=== PATIENT | male | born 1965 | race Caucasian/White ===

== ENCOUNTER → 2016-05-12 | Day surgery (SDC) | payer BC ==
[2016-05-03 15:28] VITALS: BMI 25.0
[~2016-05-12] VITALS: Ht 172.7 cm; Wt 75.0 kg
[~2016-05-12] MED LIST: ADVIN25050 INH; ALBUAER2 INH; ALLDSR/24 PO; FLNIN NAE; LIDOCAINE HCL 2% 2 ML VIAL (20MG/ML) ONE; MIDAZOLAM HCL 1 MG/ML 2ML VIAL ONE; MULTTAB58 PO; PROPOFOL IV EMULSION 10 MG/ML 20 ML VIAL IV ONE
[2016-05-12 14:22] VITALS: Ht 172.7 cm; Wt 75.0 kg
--- NOTE | 2016-05-12 14:37 | Endo History and Physical ---
History & Physical Date of Service: May 12, 2016. Chief Complaint: screening times 9 y/s Referring Physician: Dr. Avina History of Present Illness 50 yo CM who presents for screening colonoscopy. Past Surgical History Hx Cardiac Surgery: No Hx Internal Defibrillator: No Hx Pacemaker: No Hx Abdominal Surgery: Yes (APPY) Hx of Implantable Prosthesis: No Hx Post-Op Nausea and Vomiting: No Hx Cancer Surgery: No Hx Thoracic Surgery: No Hx Orthopedic: No Hx Urinary Tract Surgery: No Family History None Social History Smoking Status: Never Smoker Hx Substance Use: No Hx Alcohol Use: Yes (OCCASSIONALLY) Allergies Coded Allergies: Amoxicillin (Verified Allergy, Unknown, HIVES, 05/12/16) Aspirin (Verified Allergy, Unknown, HIVES, 05/12/16) Fish Allergy (Verified Allergy, Unknown, HIVES, 05/12/16) Current Medications Reported Home Medications Medications Dose Route/Sig Max Daily Dose Days Date Category Multivitamin (Multiple Vitamin) 1 Tab Tab 1 Tab PO QAM 12/04/11 Reported Ventolin (Albuterol) Inh 2 Puffs INH Q4H PRN 5 01/28/10 Reported Priya-D 24HR 180/240MG * (Fexofenadine HCl/Pseudoephedrine) Tabcr 1 Tab PO QAM 01/28/10 Reported Flonase Nasal [place] * (Fluticasone Propionate) Inha 1 [place] JAMILAH BID PRN 01/28/10 Reported Advair Diskus 250/50 Mcg * (Salmeterol Xinafoate/Fluticasone) Aerp 1 Puff INH BID 01/28/10 Reported Vital Signs Weight (Kilograms): 75.00 Height (Feet): 5 Height (Inches): 8 Date Time Temp Pulse Resp B/P Pulse Ox O2 Delivery O2 Flow Rate FiO2 05/12/16 14:19 36.4 73 20 163/94 97 Room Air Physical Exam General Appearance: WD/WN, no apparent distress Respiratory/Chest: Auscultation: breath sounds normal Cardiovascular: Heart Auscultation: RRR Abdomen: Bowel Sounds: normal Inspection & Palpation: soft, non-distended, no tenderness, guarding & rebound Assessment and Plan Assessment: 50 yo CM who presents for screening colonoscopy. Plan: Proceed with colonoscopy.
--- NOTE | 2016-05-12 15:53 | Discharge Instructions ---
Endoscopy Patient Instructions Date / Procedure(s) Performed May 12, 2016. Colonoscopy Allergy Information Coded Allergies: Amoxicillin (Verified Allergy, Unknown, HIVES, 05/12/16) Aspirin (Verified Allergy, Unknown, HIVES, 05/12/16) Fish Allergy (Verified Allergy, Unknown, HIVES, 05/12/16) Discharge Date / Findings May 12, 2016. Colon polyp Internal hemorrhoids Medication Instructions OK to resume all medications today as prescribed. Reported Home Medications Medications Dose Route/Sig Max Daily Dose Days Date Category Multivitamin (Multiple Vitamin) 1 Tab Tab 1 Tab PO QAM 12/04/11 Reported Ventolin (Albuterol) Inh 2 Puffs INH Q4H PRN 5 01/28/10 Reported Priya-D 24HR 180/240MG * (Fexofenadine HCl/Pseudoephedrine) Tabcr 1 Tab PO QAM 01/28/10 Reported Flonase Nasal [place] * (Fluticasone Propionate) Inha 1 [place] JAMILAH BID PRN 01/28/10 Reported Advair Diskus 250/50 Mcg * (Salmeterol Xinafoate/Fluticasone) Aerp 1 Puff INH BID 01/28/10 Reported Provider Instructions Activity Restrictions - No exercising or heavy lifting for 24 hours. - Do not drink alcohol the day of the procedure. - Do not drive a car or operate machinery until the day after the procedure. - Do not make any important decisions or sign important papers in 24 hours after the procedure. Following Day: - Return to full activity which may include returning to work/school. Diet Start your diet with liquids and light foods (jello, soup, juice, toast). Then eat your usual diet if not nauseated. Treatment For Common After Affects For mild abdominal pain, bloating, or excessive gas: - Rest - Eat lightly - Lie on right side Follow-Up Information Follow-up with Dr. Avina as scheduled Anesthesia Information What You Should Know You have had a procedure that required some medicine to reduce anxiety and discomfort. This treatment is called moderate sedation. After receiving the treatment, you may be sleepy, but you will be able to breathe on your own. The effects of the treatment may last for several hours. Follow these instructions along with Activity/Diet recommendations noted above: * Do NOT do anything where dizziness or clumsiness would be dangerous. * Rest quietly at home today, then you can be up and about tomorrow. * Have a responsible person stay with you the rest of today. * You may have had an I.V. today. If so, you may take the dressing off later today. Recommendations Call your doctor if: * Trouble breathing * Continuous vomiting for more than 24 hours * Temperature above 101 degrees * Severe abdominal pain or bloating * Pain not relieved by pain medicine ordered * There is increased drainage or redness from any incision * A large amount of rectal bleeding greater than 2-3 tablespoons. (If you had a polyp/s removed or have hemorrhoids, a small amount of blood - from the rectum is to be expected.) * You have any unanswered questions or concerns. IN THE EVENT OF A SERIOUS EMERGENCY, GO TO THE NEAREST EMERGENCY ROOM Your discharge instructions were prepared by provider Jani Stein. Patient Instructions Signature Page Polo Lopez Patient (or Guardian) Signature/Date: I have read and understand the instructions given to me by my caregivers. Caregiver/RN/Doctor Signature/Date: The above-named patient and/or guardian has received patient instructions on this date. + Original Patient Signature Page (only) stays with chart. Please make copy for patient.
--- NOTE | 2016-05-12 15:57 | GI REPORT ---
Procedure Date: 05/12/2016 3:20 PM Procedure: Colonoscopy Indications: Screening for colorectal malignant neoplasm Medicines: Monitored Anesthesia Care Complications: No immediate complications. Estimated Blood Loss: Estimated blood loss: none. Procedure: Pre-Anesthesia Assessment: - Prior to the procedure, a History and Physical was performed, and patient medications and allergies were reviewed. The patient's tolerance of previous anesthesia was also reviewed. The risks and benefits of the procedure and the sedation options and risks were discussed with the patient. All questions were answered, and informed consent was obtained. Prior Anticoagulants: The patient has taken no previous anticoagulant or antiplatelet agents. ASA Grade Assessment: II - A patient with mild systemic disease. After reviewing the risks and benefits, the patient was deemed in satisfactory condition to undergo the procedure. After I obtained informed consent, the scope was passed under direct vision. Throughout the procedure, the patient's blood pressure, pulse, and oxygen saturations were monitored continuously. The Scope was introduced through the anus and advanced to the terminal ileum. The colonoscopy was performed without difficulty. The patient tolerated the procedure well. The quality of the bowel preparation was good. The terminal ileum, ileocecal valve, appendiceal orifice, and rectum were photographed. Findings: A 4 mm polyp was found in the ascending colon. The polyp was sessile. The polyp was removed with a cold snare. Resection and retrieval were complete. Non-bleeding internal hemorrhoids were found during retroflexion. The hemorrhoids were small. Impression: - One 4 mm polyp in the ascending colon, removed with a cold snare. Resected and retrieved. - Non-bleeding internal hemorrhoids. Recommendation: - Resume previous diet. - Continue present medications. - Repeat colonoscopy for surveillance based on pathology results. - Return to primary care physician as previously scheduled. Jani Stein DO 05/12/2016 3:56:24 PM This report has been signed electronically. Note Initiated On: 05/12/2016 3:20 PM
[2016-05-12 16:22] VITALS: BP 119/84; PULSE 71; O2SAT 100
--- NOTE | 2016-05-12 16:35 | Anesthesiology Progress Note ---
Anesthesia Post Op Note Date & Time May 12, 2016 at 16:35 Vital Signs Pain Intensity: 0 Vital Signs Past 12 Hours Date Time Temp Pulse Resp B/P Pulse Ox O2 Delivery O2 Flow Rate FiO2 05/12/16 16:22 71 20 119/84 100 Room Air 05/12/16 16:07 73 20 113/56 97 Room Air 05/12/16 15:52 83 24 114/64 99 Room Air 05/12/16 14:19 36.4 73 20 163/94 97 Room Air Notes Mental Status: alert / awake / arousable, participated in evaluation Pt Amnestic to Procedure: Yes Nausea / Vomiting: adequately controlled Pain: adequately controlled Airway Patency, RR, SpO2: stable & adequate BP & HR: stable & adequate Hydration State: stable & adequate Anesthetic Complications: no major complications apparent
== END | disposition home or self-care (01) ==
LOC: C.GI 14:04
PROVIDERS: ATTEND Internal Medicine
DX: Z12.11 Encounter for screening for malignant neoplasm of colon (principal); K63.5 Polyp of colon; K64.8 Other hemorrhoids

== ENCOUNTER → 2016-07-09 | Outpatient (CLI) | payer BC ==
[~2016-07-09] MED LIST changes: -LIDOCAINE HCL 2% 2 ML VIAL (20MG/ML) ONE; -MIDAZOLAM HCL 1 MG/ML 2ML VIAL ONE; -PROPOFOL IV EMULSION 10 MG/ML 20 ML VIAL IV ONE
[2016-07-09 09:38] LABS: BASO % 0.9 %; BASO ABS # 0.05 K/uL (0-0.2); COMPLETE YES; EOS % 4.5 %; HEMATOCRIT 44.3 % (42-52); LYMPH % 30.3 %; LYMPH ABS # 1.61 K/uL (1.2-3.4); MEAN CELL VOLUME 88.6 fL (80-100); MEAN CORPUSCULAR HEMOGLOBIN 31.4 pg (25-34); MEAN CORPUSCULAR HGB CONC 35.4 g/dl (32-36); MEAN PLATELET VOLUME 10.6 fL (7.4-10.4); MONO % 12.4 %; NEUT % 51.9 %; PLATELET COUNT 230 K/uL (130-400); WHITE BLOOD COUNT 5.31 K/uL (4.8-10.8)
[2016-07-09 10:00] LABS: ALT/SGPT 42 U/L (12-78); AST/SGOT 26 U/L (15-37); BLOOD UREA NITROGEN 20 mg/dl (7-18); BUN/CREATININE RATIO 18.1 (10-20); CALCIUM 8.9 mg/dl (8.5-10.1); CARBON DIOXIDE 27 mmol/L (21-32); CHLORIDE 106 mmol/L (98-107); GLUCOSE 85 mg/dl (70-99); POTASSIUM 3.6 mmol/L (3.5-5.1); SODIUM 142 mmol/L (136-145)
[2016-07-09 10:10] LABS: ALB/GLOB RATIO 1.3 (0.9-2); ALKALINE PHOSPHATASE 78 U/L (45-117); CHOLESTEROL 160 mg/dl (0-200); CHOLESTEROL/HDL RATIO 3.1; HDL CHOLESTEROL 51 mg/dl; LDL CHOLESTEROL CALCULATED 99 mg/dl; TRIGLYCERIDES 51 mg/dl (0-150); VERY LOW DENSITY LIPOPROT CALC 10 mg/dl
== END | disposition home or self-care (01) ==
LOC: C.LAB1850 06:47
PROVIDERS: ATTEND Nurse Practitioner
DX: J45.909 Unspecified asthma, uncomplicated (principal); K63.5 Polyp of colon; K64.8 Other hemorrhoids

== ENCOUNTER → 2017-07-02 | Outpatient (CLI) | payer OTHER ==
[2017-07-02 11:06] LABS: BASO % 1.2 %; BASO ABS # 0.06 K/uL (0-0.2); EOS % 3.3 %; EOS ABS # 0.17 K/uL (0-0.5); HEMATOCRIT 44.8 % (42-52); HEMOGLOBIN 15.9 g/dL (14.0-18.0); IG# 0.01 K/uL (0.00-0.02); LYMPH ABS # 1.45 K/uL (1.2-3.4); MEAN CELL VOLUME 90.3 fL (80-100); MEAN CORPUSCULAR HEMOGLOBIN 32.1 pg (25-34); MEAN CORPUSCULAR HGB CONC 35.5 g/dl (32-36); MEAN PLATELET VOLUME 10.6 fL (7.4-10.4); MONO % 11.8 %; MONO ABS # 0.61 K/uL (0.11-0.59); NEUT % 55.5 %; NEUT ABS # 2.88 K/uL (1.4-6.5); PLATELET COUNT 232 K/uL (130-400); RED CELL DISTRIBUTION WIDTH CV 12.6 % (11.5-14.5); RED CELL DISTRIBUTION WIDTH SD 41.4 fL (36.4-46.3); WHITE BLOOD COUNT 5.18 K/uL (4.8-10.8)
[2017-07-02 11:35] LABS: ALBUMIN 3.7 gm/dl (3.4-5.0); ALT/SGPT 38 U/L (12-78); BLOOD UREA NITROGEN 21 mg/dl (7-18); CALCIUM 8.8 mg/dl (8.5-10.1); CARBON DIOXIDE 26 mmol/L (21-32); CHOLESTEROL 181 mg/dl (0-200); CREATININE 1.13 mg/dl (0.60-1.40); GLUCOSE 87 mg/dl (70-99); POTASSIUM 3.5 mmol/L (3.5-5.1); SODIUM 141 mmol/L (136-145)
[2017-07-02 11:45] LABS: ALKALINE PHOSPHATASE 82 U/L (45-117); AST/SGOT 20 U/L (15-37); LDL CHOLESTEROL CALCULATED 123 mg/dl
== END | disposition home or self-care (01) ==
LOC: C.LAB1850 07:49
PROVIDERS: ATTEND Physician Assistant Medical
DX: Z00.00 Encounter for general adult medical examination without abnormal findings (principal); J45.909 Unspecified asthma, uncomplicated

== ENCOUNTER → 2017-08-08 | Outpatient (CLI) | payer OTHER ==
--- NOTE | 2017-08-08 10:26 | DIAGNOSTIC IMAGING REPORT ---
RIGHT FOOT 3 VIEWS CLINICAL HISTORY: Right foot pain. FINDINGS: 3 views of the right foot are compared to study dated 11/08/2011. The skeletal structures are well mineralized. No fracture is identified. The joint spaces of the foot are maintained. There is a tiny plantar calcaneal enthesophyte. Degenerative spurring is seen along the dorsal aspect of the tarsal bones. Dorsal soft tissue edema is noted. IMPRESSION: Dorsal soft tissue swelling with no radiographic evidence of right foot fracture. Electronically signed by: Carmelo Platt M.D. 08/08/2017 10:24 AM Dictated Date/Time: 08/08/2017 10:22 AM
== END | disposition home or self-care (01) ==
LOC: C.RDSM 18:01
PROVIDERS: ATTEND Internal Medicine
DX: M79.671 Pain in right foot (principal)

== ENCOUNTER 2020-08-01 00:53 | Inpatient (IN) ==
[2020-08-01] MEDS ORDERED: MoRPHine SULFATE 4 MG/ML 1 ML CARP\\VIAL IV STA (01:20)
[2020-08-01] MEDS ORDERED: ONDANSETRON INJ 2 MG/ML 2 ML VIAL IV STA ×2 (01:20→03:29)
[2020-08-01] MEDS ORDERED: SODIUM CHLORIDE 0.9% 1000ML 1,000 ML IV ONE ×2 (01:20→03:16)
[2020-08-01] MEDS ORDERED: ACETAMINOPHEN 1,000 MG/100 ML VIAL IV STA (01:20)
--- NOTE | 2020-08-01 01:29 | Emergency Department Note ---
History of Present Illness General Chief complaint: Flank Pain Stated complaint: flank pain Time Seen by Provider: 08/01/20 01:05 Source: patient Mode of arrival: ambulatory Limitations: no limitations History of Present Illness Provider complaint: Right flank pain Onset (ago): hour(s) 1 Location: back Radiation: non-radiation Severity: severe Pain Consistency: + constant Maximum Pain Intensity: 9 Current Pain Intensity: 9 Relieved By: + none Exacerbated By: + none Associated symptoms: + nausea/vomiting Treatments prior to arrival: none This is a 54-year male presents the emergency department with abrupt onset of right flank pain. Patient states pain woke him up from sleep at exactly 12:02 AM. Patient denies any prior similar episodes. States pain is nonradiating, he has felt nauseated but has not vomited. No recent fevers or chills. Patient states he was slightly cold and felt diaphoretic with the pain. He states there is some waxing and waning quality to the pain. No recent change in bowel or bladder function. No recent change in diet or activity. No trauma. No prior history of kidney stones or other kidney problems. No known family history of renal issues. Pt seen during a time of high acuity and national emergency pandemic while wearing PPE. Home Medications Medication Instructions Recorded Confirmed Type fluticasone propionate 50 1 spray INTRANASAL DAILY gm 11/22/18 08/01/20 History mcg/actuation nasal spray,suspension multivitamin 1 tab PO DAILY 11/22/18 08/01/20 History fexofenadine-pseudoephedrine ER 1 tab PO QAM #90 tab 08/27/19 08/01/20 Rx 180 mg-240 mg tablet,ext.release 24 hr albuterol sulfate 90 mcg/actuation 2 puffs INHALATION Q4H PRN #3 09/18/19 08/01/20 Rx aerosol inhaler inhaler fluticasone 250 mcg-salmeterol 50 1 inh INHALATION BID #3 ea 07/02/20 08/01/20 Rx mcg/dose blistr powdr for inhalation Allergies Allergy/AdvReac Type Severity Reaction Status Date / Time amoxicillin Allergy Intermediate HIVES Verified 08/01/20 01:24 aspirin Allergy Intermediate HIVES Verified 08/01/20 01:24 Fish Containing Products Allergy Intermediate HIVES Verified 08/01/20 01:24 fish derived Allergy Verified 08/02/20 16:52 fish oil Allergy Verified 08/02/20 16:52 POLLEN Allergy Intermediate ITCHY Uncoded 08/01/20 01:26 EYES, SNEEZING, CONGESTION, HX ASTHMA Past Med/Surg History Medical History H/O epistaxis Surgical History History of appendectomy History of cataract surgery History of colonoscopy Family History Unknown Allergic rhinitis Diabetes Father Cardiac disorder Hypercholesterolemia Mother Hypertension Hypercholesterolemia Social History Smoking Status: Never smoker Hx Alcohol Use: Yes Hx Substance Use: No Preferred Language: Mongolian Communication Ability: Effective Statistician Applied Required: No Beliefs That Will Affect Care: None marital status: Current Living Situation: Spouse current occupational status: employed Feels Safe at Home: Yes Safety Concerns: Feels Safe At This Time Assistive Devices: Glasses Review of Systems See HPI for pertinent positives & negatives. and A total of 10 systems reviewed and were otherwise negative Physical Exam Vital Signs Vital Signs - 24 hr 08/01/20 01:00 08/01/20 01:05 08/01/20 01:14 Temperature 35.9 C L Temperature Source Temporal Artery Scan Pulse Rate 86 61 Pulse Rate from SpO2 Sensor 60 Respiratory Rate 22 20 17 Respiratory Effort / Characteristics Non-Labored Spontaneous Respiratory Depth Normal Normal Respiratory Pattern Regular Blood Pressure 135/84 156/92 H Blood Pressure Mean 101 113 Pulse Oximetry 100 100 Oxygen Delivery Method Room Air Room Air Sepsis Recent Fever Within 48 Hours No Sepsis New/Unexplained Change in Mental Status N/A Sepsis Action Taken by Nursing No Action Required 08/01/20 01:37 08/01/20 02:00 08/01/20 02:30 Temperature Temperature Source Pulse Rate 61 72 63 Pulse Rate from SpO2 Sensor 61 67 61 Respiratory Rate 12 20 17 Respiratory Effort / Characteristics Respiratory Depth Respiratory Pattern Blood Pressure 144/103 H 141/78 H Blood Pressure Mean 116 99 Pulse Oximetry 100 100 99 Oxygen Delivery Method Room Air Room Air Sepsis Recent Fever Within 48 Hours Sepsis New/Unexplained Change in Mental Status Sepsis Action Taken by Nursing 08/01/20 02:31 08/01/20 03:06 08/01/20 03:12 Temperature Temperature Source Pulse Rate 63 68 72 Pulse Rate from SpO2 Sensor 63 71 Respiratory Rate 12 17 19 Respiratory Effort / Characteristics Respiratory Depth Respiratory Pattern Blood Pressure 137/79 162/87 H Blood Pressure Mean 98 112 Pulse Oximetry 99 98 Oxygen Delivery Method Sepsis Recent Fever Within 48 Hours Sepsis New/Unexplained Change in Mental Status Sepsis Action Taken by Nursing GENERAL: alert, uncomfortable appearing, well nourished, mild distress, non- toxic EYE EXAM: normal conjunctiva, PERRL and EOM's grossly intact OROPHARYNX: no exudate, no erythema, lips, buccal mucosa, and tongue normal and mucous membranes are moist NECK: supple, no nuchal rigidity, no adenopathy, non-tender LUNGS: Clear to auscultation. Normal chest wall mechanics, no w/r/r HEART: no murmurs, S1 normal and S2 normal ABDOMEN: abdomen soft, non-tender, normo-active bowel sounds, no masses, no rebound or guarding. BACK: Back is symmetrical on inspection and there is no deformity, no midline tenderness, no CVA tenderness. SKIN: no rashes and no bruising UPPER EXTREMITIES: upper extremities are grossly normal. FROM, nml pulses b/l. LOWER EXTREMITIES: No pitting edema. FROM, nml pulses b/l. NEURO EXAM: Normal sensorium, cranial nerves II-XII grossly intact, normal speech, no gross weakness of arms, no gross weakness of legs. Gross sensation intact. Course Course 0245: Patient has been persistently nauseated although pain has improved additional medications. Patient was very diaphoretic. Patient states with any movement the nausea seems to worsen. Patient's had several doses of pain and nausea medication at this time. Discussed trial of going to CT to obtain imaging as ordered. 0325: Patient still nauseated and diaphoretic, was able to complete CT scan. Patient still has not been able to produce a urine specimen. Patient with second liter of IV fluids and has had multiple medications for pain and nausea at this time and still feels nauseated. He says pain is improved down to a 2 or 3 out of 10 although is still present and is not radiating. Discussed with patient given difficulty with pain and persistent nausea/vomiting, he may benefit from additional inpatient monitoring and treatment until such time as his symptoms can be better controlled. 0345: Discussed with hospitalist for inpt mgmt. UA still pending as pt hasn't p roduced urine specimen yet. Administered Medications Acetaminophen (Acetaminophen 325 Mg Tab) 650 mg PO Q4H PRN PRN Reason: pain/fever Stop: 08/31/20 05:40 Last Admin: 08/02/20 09:40 Dose: 650 mg Documented by: [id number] Admin: 08/01/20 23:13 Dose: 650 mg Documented by: [id number] Admin: 08/01/20 19:24 Dose: 650 mg Documented by: [id number] Admin: 08/01/20 12:57 Dose: 650 mg Documented by: [id number] Fluticasone Propionate (Fluticasone Propionate Na Spr 16 Gm Btl) 1 sprays NA DAILY [facility] Stop: 08/31/20 08:59 Last Admin: 08/02/20 09:38 Dose: 1 sprays Documented by: [id number] Admin: 08/01/20 07:50 Dose: 1 sprays Documented by: [id number] Fluticasone/Vilanterol (Fluticasone/Vilanterol 100/25mcg 14 Puffs/Inhaler) 1 puffs INH DAILY [facility] Stop: 08/31/20 08:59 Last Admin: 08/02/20 09:37 Dose: 1 puffs Documented by: [id number] Admin: 08/01/20 07:51 Dose: 1 puffs Documented by: [id number] Hydromorphone HCl (Hydromorphone Inj 0.5 Mg/0.5 Ml Syr) 0.5 mg IV Q3H PRN PRN Reason: Pain (6,7,8,9,10) Stop: 08/15/20 05:40 Last Admin: 08/02/20 05:51 Dose: 0.5 mg Documented by: [id number] Admin: 08/01/20 23:14 Dose: 0.5 mg Documented by: [id number] Admin: 08/01/20 13:43 Dose: 0.5 mg Documented by: [id number] Admin: 08/01/20 07:50 Dose: 0.5 mg Documented by: [id number] Ceftriaxone Sodium 1,000 mg/ (Dextrose) 50 mls @ 100 mls/hr IV Q24H [facility]DAR; Protocol Stop: 08/11/20 05:59 Last Infusion: 08/02/20 06:29 Dose: 0 mls/hr Documented by: [id number] Admin: 08/02/20 05:47 Dose: 100 mls/hr Documented by: [id number] Infusion: 08/01/20 07:49 Dose: 0 mls/hr Documented by: [id number] Admin: 08/01/20 06:18 Dose: 100 mls/hr Documented by: [id number] Potassium Chloride/Dextrose/Sod Cl (D5w And 1/2nss + 20meq Kcl) 20 meq in 1,000 mls @ 175 mls/hr IV .Q5H43M [facility] Stop: 09/01/20 09:29 Last Admin: 08/02/20 23:27 Dose: 175 mls/hr Documented by: [id number] Infusion: 08/02/20 22:42 Dose: 175 mls/hr Documented by: [id number] Admin: 08/02/20 16:59 Dose: 175 mls/hr Documented by: [id number] Infusion: 08/02/20 15:19 Dose: 175 mls/hr Documented by: [id number] Admin: 08/02/20 09:36 Dose: 175 mls/hr Documented by: [id number] Oxybutynin Chloride (Oxybutynin Chloride 5 Mg Tab) 5 mg PO BID [facility] Stop: 09/01/20 13:59 Last Admin: 08/02/20 20:34 Dose: 5 mg Documented by: [id number] Admin: 08/02/20 14:55 Dose: 5 mg Documented by: [id number] Tamsulosin HCl (Tamsulosin Hcl 0.4 Mg Cap) 0.4 mg PO QAM [facility] Stop: 08/31/20 08:59 Last Admin: 08/02/20 09:37 Dose: 0.4 mg Documented by: [id number] Admin: 08/01/20 07:51 Dose: 0.4 mg Documented by: [id number] Discontinued Medications Hydromorphone HCl (Hydromorphone Inj 1 Mg/Ml Syringe) 1 mg IV NOW STA Stop: 08/01/20 02:00 Last Admin: 08/01/20 02:04 Dose: 1 mg Documented by: [id number] Acetaminophen (Ofirmev) 1,000 mg in 100 mls @ 400 mls/hr IV NOW STA Stop: 08/01/20 01:34 Last Infusion: 08/01/20 01:50 Dose: 0 mls/hr Documented by: [id number] Admin: 08/01/20 01:28 Dose: 400 mls/hr Documented by: [id number] Sodium Chloride (Nss 1000ml) 1,000 mls @ 999 mls/hr IV .Q1H1M ONE Stop: 08/01/20 02:20 Last Infusion: 08/01/20 03:11 Dose: 0 mls/hr Documented by: [id number] Admin: 08/01/20 01:28 Dose: 999 mls/hr Documented by: [id number] Prochlorperazine (Compazine) 1 mls @ 1 mls/min IV ONE ONE Stop: 08/01/20 02:21 Last Admin: 08/01/20 02:28 Dose: 1 mls/min Documented by: [id number] Sodium Chloride (Nss 1000ml) 1,000 mls @ 999 mls/hr IV .Q1H1M ONE Stop: 08/01/20 04:16 Last Infusion: 08/01/20 15:38 Dose: 0 mls/hr Documented by: [id number] Admin: 08/01/20 03:26 Dose: 999 mls/hr Documented by: [id number] Sodium Chloride (Nss 1000ml) 1,000 mls @ 125 mls/hr IV .Q8H [facility] Stop: 08/31/20 05:40 Last Infusion: 08/02/20 09:42 Dose: 0 mls/hr Documented by: [id number] Admin: 08/02/20 07:51 Dose: 125 mls/hr Documented by: [id number] Infusion: 08/02/20 07:19 Dose: 125 mls/hr Documented by: [id number] Admin: 08/01/20 23:19 Dose: 125 mls/hr Documented by: [id number] Infusion: 08/01/20 23:19 Dose: 125 mls/hr Documented by: [id number] Admin: 08/01/20 16:00 Dose: 125 mls/hr Documented by: [id number] Infusion: 08/01/20 15:22 Dose: 125 mls/hr Documented by: [id number] Infusion: 08/01/20 10:36 Dose: 125 mls/hr Documented by: [id number] Infusion: 08/01/20 09:31 Dose: 0 mls/hr Documented by: [id number] Admin: 08/01/20 06:17 Dose: 125 mls/hr Documented by: [id number] Ketorolac Tromethamine (Ketorolac Tromethamine 15 Mg/Ml Vial) 10 mg IV NOW ONE Stop: 08/01/20 02:21 Last Admin: 08/01/20 02:29 Dose: 10 mg Documented by: [id number] Morphine Sulfate (Morphine Sulfate 4 Mg/Ml 1 Ml Carp\Vial) 4 mg IV NOW STA Stop: 08/01/20 01:21 Last Admin: 08/01/20 01:28 Dose: 4 mg Documented by: [id number] Ondansetron HCl (Ondansetron Inj 2 Mg/Ml 2 Ml Vial) 4 mg IV NOW STA Stop: 08/01/20 01:21 Last Admin: 08/01/20 01:28 Dose: 4 mg Documented by: [id number] Ondansetron HCl (Ondansetron Inj 2 Mg/Ml 2 Ml Vial) 4 mg IV NOW STA Stop: 08/01/20 03:30 Last Admin: 08/01/20 03:42 Dose: 4 mg Documented by: [id number] Tamsulosin HCl (Tamsulosin Hcl 0.4 Mg Cap) 0.4 mg PO NOW ONE Stop: 08/01/20 03:20 Last Admin: 08/01/20 03:42 Dose: 0.4 mg Documented by: [id number] Medical Decision Making Differential Diagnosis Differential diagnosis: Etiologies such as shingles, pyelonephritis/UTI, renal colic, appendicitis, diverticulitis, mesenteric ischemia, torsion, aortic pathology, infections, inflammatory bowel disease, bowel obstruction, PUD, biliary pathology, as well a s others were entertained. Medical Records Attestation: I reviewed the patient's medical records. Home Medications Current Medication List: was personally reviewed by me Laboratory Data Attestation: I reviewed the patient's lab results. Result diagrams: 08/02/20 06:16 08/02/20 06:16 Lab Results 08/01/20 08/01/20 08/01/20 Range/Units 01:15 01:15 03:41 WBC 7.20 (4.8-10.8) K/uL RBC 4.86 (4.7-6.1) M/uL Hgb 15.6 (14.0-18.0) g/dL Hct 44.3 (42-52) % MCV 91.2 (80-100) fL MCH 32.1 (25-34) pg MCHC 35.2 (32-36) g/dL RDW Std Deviation 42.1 (36.4-46.3) fL RDW Coeff of Sean 12.7 (11.5-14.5) % Plt Count 286 (130-400) K/uL MPV 10.1 (7.4-10.4) fL Immature Gran % (Auto) 0.1 % Neut % (Auto) 50.1 % Lymph % (Auto) 36.3 % Dewitt % (Auto) 10.1 % Eos % (Auto) 2.4 % Baso % (Auto) 1.0 % Neut # (Auto) 3.61 (1.4-6.5) K/uL Lymph # (Auto) 2.61 (1.2-3.4) K/uL Dewitt # (Auto) 0.73 H (0.11-0.59) K/uL Eos # (Auto) 0.17 (0-0.5) K/uL Baso # (Auto) 0.07 (0-0.2) K/uL Immature Gran # (Auto) 0.01 (0.00-0.02) K/uL Sodium 139 (136-145) mmol/L Potassium 3.7 (3.5-5.1) mmol/L Chloride 106 (98-107) mmol/L Carbon Dioxide 26 (21-32) mmol/L Anion Gap 8.0 (3-11) BUN 23 H (7-18) mg/dl Creatinine 1.31 (0.6-1.4) mg/dl Est Cr Clr Drug Dosing 61.6 ml/min Est GFR ( Amer) 70.5 Est GFR (Non-Af Amer) 60.9 BUN/Creatinine Ratio 17.4 (10-20) Glucose 119 H (70-99) mg/dl Calcium 9.4 (8.5-10.1) mg/dl Total Bilirubin 0.5 (0.2-1) mg/dl AST 22 (15-37) U/L ALT 39 (12-78) U/L Alkaline Phosphatase 98 (45-117) U/L Total Protein 7.4 (6.4-8.2) gm/dl Albumin 3.9 (3.4-5.0) gm/dl Globulin 3.5 (2.5-4.0) gm/dl Albumin/Globulin Ratio 1.1 (0.9-2) COVID-19 Eval Order CovFluRsv at [facility] SARS-CoV-2 (PCR) (Negative) Influenza Type A (PCR) (Neg) Influenza Type B (PCR) (Neg) RSV (RT-PCR) (Neg) 08/01/20 Range/Units 03:41 WBC (4.8-10.8) K/uL RBC (4.7-6.1) M/uL Hgb (14.0-18.0) g/dL Hct (42-52) % MCV (80-100) fL MCH (25-34) pg MCHC (32-36) g/dL RDW Std Deviation (36.4-46.3) fL RDW Coeff of Sean (11.5-14.5) % Plt Count (130-400) K/uL MPV (7.4-10.4) fL Immature Gran % (Auto) % Neut % (Auto) % Lymph % (Auto) % Dewitt % (Auto) % Eos % (Auto) % Baso % (Auto) % Neut # (Auto) (1.4-6.5) K/uL Lymph # (Auto) (1.2-3.4) K/uL Dewitt # (Auto) (0.11-0.59) K/uL Eos # (Auto) (0-0.5) K/uL Baso # (Auto) (0-0.2) K/uL Immature Gran # (Auto) (0.00-0.02) K/uL Sodium (136-145) mmol/L Potassium (3.5-5.1) mmol/L Chloride (98-107) mmol/L Carbon Dioxide (21-32) mmol/L Anion Gap (3-11) BUN (7-18) mg/dl Creatinine (0.6-1.4) mg/dl Est Cr Clr Drug Dosing ml/min Est GFR ( Amer) Est GFR (Non-Af Amer) BUN/Creatinine Ratio (10-20) Glucose (70-99) mg/dl Calcium (8.5-10.1) mg/dl Total Bilirubin (0.2-1) mg/dl AST (15-37) U/L ALT (12-78) U/L Alkaline Phosphatase (45-117) U/L Total Protein (6.4-8.2) gm/dl Albumin (3.4-5.0) gm/dl Globulin (2.5-4.0) gm/dl Albumin/Globulin Ratio (0.9-2) COVID-19 Eval Order SARS-CoV-2 (PCR) NEGATIVE (Negative) Influenza Type A (PCR) Negative (Neg) Influenza Type B (PCR) Negative (Neg) RSV (RT-PCR) Negative (Neg) Imaging Data Radiologist's Impression: CT abdomen and pelvis without contrast: Mild/moderate hiatal hernia with fluid in esophagus and stomach. 3.5 mm mid ureteral stone with upstream mild hydroureter and hydronephrosis. Multiple additional nonobstructive 1 to 2 mm stones seen in the right kidney upper mid and lower pole as well as in the left kidney mid to upper pole. Small periumbilical fat-containing hernia. Mild convex left curvature of the mid lumbar spine at L2. Straightening of the normal lumbar lordosis. L5-S1 loss of disc height. Radiologist: Mary Coy MD MDM Narrative This is a 54 yo male who presents with sudden onset right flank pain and nausea. No prior similar episodes, no other significant medical hx or recent illness. No trauma. Symptoms most suggestive of renal colic. IV started in order to provide meds for pain and nausea. IVF started, labs sent and CT ordered. It took several doses of pain and nausea meds to calm the patient's symptoms enough to go to CT. Pt was diaphoretic and holding an emesis bag thru most of this. CT was eventually obtained and confirmed suspected renal colic. No other acute pathology noted. Pt given additional meds and IVF and still had significant nausea, although pain was improved. Given extent of symptoms, ill appearance despite meds, discussed with him additional inpatient mgmt. Pt and verbalized understanding and were in agreement. An order was placed for continuous cardiac monitoring. The monitor shows a rate of 80_ with _normal sinus_ rhythm. Impression & Plan Ureterolithiasis, Acute flank pain, Nausea & vomiting Discharge Plan Visit Data Chief Complaint: Flank Pain Stated Complaint: flank pain ED Provider: Montserrat Garcia Discharge Problem: Ureterolithiasis, Acute flank pain, Nausea & vomiting Patient Disposition: Admitted As Inpatient Discharge Instructions Interventions: ED Discharge Assessment Last Done: 08/01/20 05:32 Discharge Problem: Nausea & vomiting Qualifiers: Vomiting type: unspecified Vomiting Intractability: intractable Qualified Code(s): R11.2 - Nausea with vomiting, unspecified
[2020-08-01 01:46] LABS: Basophils # (auto) 0.07 K/uL (0-0.2); Eosinophils # (auto) 0.17 K/uL (0-0.5); Eosinophils % (auto) 2.4 %; Hematocrit (blood only) 44.3 % (42-52); Hemoglobin 15.6 g/dL (14.0-18.0); Immature Granulocytes # (auto) 0.01 K/uL (0.00-0.02); Immature Granulocytes % (auto) 0.1 %; Lymphocytes # (auto) 2.61 K/uL (1.2-3.4); Lymphocytes % (auto) 36.3 %; Mean Corpuscular Hemoglobin 32.1 pg (25-34); Mean Corpuscular Hgb Conc 35.2 g/dL (32-36); Mean Corpuscular Volume 91.2 fL (80-100); Mean Platelet Volume 10.1 fL (7.4-10.4); Monocytes # (auto) 0.73 K/uL (0.11-0.59); Monocytes % (auto) 10.1 %; Neutrophils # (auto) 3.61 K/uL (1.4-6.5); Neutrophils % (auto) 50.1 %; Platelet Count 286 K/uL (130-400); RDW Coefficient of Variation 12.7 % (11.5-14.5); RDW Standard Deviation 42.1 fL (36.4-46.3); Red Blood Count 4.86 M/uL (4.7-6.1)
[2020-08-01] MEDS ORDERED: HYDROmorphone INJ 1 MG/ML SYRINGE IV STA (01:59)
[2020-08-01 02:04] LABS: Albumin Level 3.9 gm/dl (3.4-5.0); BUN Creatinine Ratio 17.4 (10-20); Calcium 9.4 mg/dl (8.5-10.1); Creatinine Clr Calc Pharmacy 61.6 ml/min; Est GFR (African American) 70.5; Est GFR (Non-African American) 60.9; Potassium 3.7 mmol/L (3.5-5.1)
[2020-08-01 02:07] LABS: Albumin Globulin Ratio 1.1 (0.9-2); Bilirubin,Total 0.5 mg/dl (0.2-1); Globulin 3.5 gm/dl (2.5-4.0); Total Protein 7.4 gm/dl (6.4-8.2)
[2020-08-01] MEDS ORDERED: KETOROLAC TROMETHAMINE 15 MG/ML VIAL IV ONE (02:20)
[2020-08-01] MEDS ORDERED: PROCHLORPERAZINE 1 ML IV ONE (02:20)
[2020-08-01] MEDS ORDERED: TAMSULOSIN HCL 0.4 MG CAP PO ONE (03:19)
[2020-08-01 04:34] LABS: Influenza A virus by PCR Negative (Neg); Influenza B virus by PCR Negative (Neg); RSV by PCR Negative (Neg); SARS CoV2 RNA(COVID-19) InHosp NEGATIVE (Negative)
--- NOTE | 2020-08-01 05:11 | History & Physical Report ---
Date of Service August 01, 2020 Assessment & Plan Admission and Anticipated Discharge Date Admission Date: 54 yo M w/ pMHx. of asthma, allergic rhinitis, and gout presents with flank pain and CT with findings of obstructing 3.5 mm stone in the right ureter. Hydroureteronephrosis, acute; first presentation unclear etiology although potentially uric acid stone given hx. of gout CT w/ finding of hiatal hernia, 3.5 mm mid ureteral stone mild hydroureter and hydronephrosis with multiple nonobstructing 1--2mm stones in the right kidney upper mid & lower pole and in the left kidney mid and upper pole UA benign - ordered uric acid level - started Ceftriaxone for concern of infection - IVF - Tamsulosin daily - strain urine and send any stone for pathology if obtained - Pain control with Dilaudid - Zofran for nausea (obtained EKG to eval. Qtc) - consulted urology Asthma - continue home Albuterol and Fluticasone Code: full Diet: NPO DVT: ambulation History of Present Illness Chief Complaint: flank pain Primary Care Provider: Lucas Avina MD Polo Lopez is here for sudden onset flank pain. He woke up at 12:02 with pain that was severe but it waxed and waned. It was in his right flank but also radiated down to his groin. He developed nausea but has not vomited. He has never had anything like this previously. He did not start any new medications recently. His pain has improved with pain medication that he received in the ER. He has a history of gout but most recent uric acid level was normal. He has not had dysuria, hematuria or urgency but does complain of some chronic urinary frequency getting up 2-3 times a night. Hx. of Asthma, well controlled. Allergies Allergy/AdvReac Type Severity Reaction Status Date / Time amoxicillin Allergy Intermediate HIVES Verified 08/01/20 01:24 aspirin Allergy Intermediate HIVES Verified 08/01/20 01:24 Fish Containing Products Allergy Intermediate HIVES Verified 08/01/20 01:24 POLLEN Allergy Intermediate ITCHY Uncoded 08/01/20 01:26 EYES, SNEEZING, CONGESTION, HX ASTHMA Home Medications Medication Instructions Recorded Confirmed Type fluticasone propionate 50 1 spray INTRANASAL DAILY gm 11/22/18 08/01/20 History mcg/actuation nasal spray,suspension multivitamin 1 tab PO DAILY 11/22/18 08/01/20 History fexofenadine-pseudoephedrine ER 1 tab PO QAM #90 tab 08/27/19 08/01/20 Rx 180 mg-240 mg tablet,ext.release 24 hr albuterol sulfate 90 mcg/actuation 2 puffs INHALATION Q4H PRN #3 09/18/19 08/01/20 Rx aerosol inhaler inhaler fluticasone 250 mcg-salmeterol 50 1 inh INHALATION BID #3 ea 07/02/20 08/01/20 Rx mcg/dose blistr powdr for inhalation Past Med/Surg History Medical History H/O epistaxis Surgical History History of appendectomy History of cataract surgery History of colonoscopy Family History Unknown Allergic rhinitis Diabetes Father Cardiac disorder Hypercholesterolemia Mother Hypertension Hypercholesterolemia Social History Smoking Status: Never smoker Hx Alcohol Use: Yes Hx Substance Use: No Preferred Language: Andorran Communication Ability: Effective Product Info Specialist Required: No Beliefs That Will Affect Care: None marital status: Current Living Situation: Spouse current occupational status: employed Feels Safe at Home: Yes Safety Concerns: Feels Safe At This Time Assistive Devices: None Review of Systems Review of Systems: Constitutional: denies vomiting, weight change, fevers admits chills, nausea, and diaphoresis Head: denies trauma, headaches, confusion, lightheadedness Neurologic: denies syncope ENT: denies rhinorrhea, stuffiness, sneezing Cardiac: denies chest pain, palpitations Pulm.: denies cough, shortness of breath GI: denies diarrhea, constipation : denies dysuria Physical Exam Constitutional: WD/WN, vitals as above Eyes: PERRL, conjunctivae normal, anicteric sclerae ENMT: external ear and nose normal, oropharynx normal Neck: normal visual inspection Respiratory: normal respiratory effort, lungs clear to auscultation Cardiovascular: RRR, no murmur, no edema Gastrointestinal (Abdomen): Inspection/Auscultation: abdomen normal to inspection Percussion/Palpation: abdomen soft; abdomen nontender Musculoskeletal: No CVA tenderness, no spinous process tenderness Neurologic: no focal motor deficits Results & Data Results & Data ([facility]) Vital Signs (Past 12 Hours) Vital Signs Temp Pulse Resp BP Pulse Ox 08/01/20 03:12 72 19 162/87 H 98 08/01/20 03:06 68 17 08/01/20 02:31 63 12 137/79 99 08/01/20 02:30 63 17 99 08/01/20 02:00 72 20 141/78 H 100 08/01/20 01:37 61 12 144/103 H 100 08/01/20 01:14 61 17 156/92 H 100 08/01/20 01:05 20 08/01/20 01:00 35.9 C L 86 22 135/84 100 CBC Results Results Complete Blood Count Results: RBC 4.86 M/uL (4.7-6.1) 08/01/20 WBC 7.20 K/uL (4.8-10.8) 08/01/20 Hgb 15.6 g/dL (14.0-18.0) 08/01/20 Hct 44.3 % (42-52) 08/01/20 Plt Count 286 K/uL (130-400) 08/01/20 Chemistry (BMP) Results BMP Results: Sodium 139 mmol/L (136-145) 08/01/20 Potassium 3.7 mmol/L (3.5-5.1) 08/01/20 Chloride 106 mmol/L (98-107) 08/01/20 BUN 23 mg/dl (7-18) H 08/01/20 Creatinine 1.31 mg/dl (0.6-1.4) 08/01/20 Glucose 119 mg/dl (70-99) H 08/01/20 Code Status & VTE Plan VTE Prophylaxis Plan VTE Prophylaxis will be ordered: No Supervising Physician Co-Signing Physician Notes Attending addendum: I have physically seen this patient, have supervised the medical residents activities, and agree with the H&P unless as otherwise noted. Assessment and Plan: 3.5 mm right mid ureteral obstructing stone/mild hydroureteronephrosis- NPO IV fluids Follow urine culture and sensitivity Tamsulosin 0.4 mg daily to start tonight Zofran 4 mg IV every 6 hours as needed Ceftriaxone 1 g IV daily Consult urology Asthma- Continue albuterol and fluticasone Remaining orders and notations as noted Resident Activity Tracking Resident Involvement: Resident Care Provided Care Provided: Adult [facility] Medicine
[2020-08-01 05:32] LABS: Appearance Urine Clear (Clear); Bacteria Urine Automated Negative (Negative); Bilirubin Urine Negative (Negative); Blood Urine Trace (Negative); Cast Urine Automated 0 /lpf (0-5); Color Urine Yellow; Glucose Urine UA Negative (Negative); Ketones Urine 1+ (Negative); Leukocyte Esterase Urine Negative (Negative); Nitrite Urine Negative (Negative); Protein Urine Negative (Negative); RBC Urine Automated 0-4 /hpf (0-4); Specific Gravity Urine 1.017 (1.000-1.030); Urobilinogen Urine Negative (Negative); pH Urine 7.5 (4.5-7.5)
[2020-08-01] MEDS ORDERED: HYDROmorphone INJ 0.5 MG/0.5 ML SYR IV PRN (05:41)
[2020-08-01] MEDS ORDERED: ALBUTEROL HFA 8 GM INHALER INH PRN (05:41)
[2020-08-01] MEDS ORDERED: ONDANSETRON INJ 2 MG/ML 2 ML VIAL IV PRN (05:41)
[2020-08-01] MEDS ORDERED: POLYETHYLENE (MIRALAX) 17 GM PACK PO PRN (05:41)
--- NOTE | 2020-08-01 05:46 | Urology Consultation ---
Date of Consultation August 01, 2020 Assessment & Plan (1) Ureterolithiasis: Patient has been admitted to the hospital by the medical service. We will proceed as follows: Provide analgesics Provide antiemetics Provide IV fluid for hydration Strain all urine and save any kidney stones for analysis Continue Flomax for expulsive therapy Patient has been placed on empiric Rocephin. We will continue this until we have results of urinalysis and possible urine culture with further antibiotics dictated by these results. At the present time there is no need for urgent cystoscopy as the patient is not septic. He is afebrile, normotensive, he is not tachycardic, and his white blood cell count is normal. His renal function not indicative of acute kidney injury. I discussed with the patient that we will give him a trial to pass the kidney stone on his own. His symptomatology persist the possibility of cystoscopy will be revisited at a later time. History of Present Illness Reason for Consultation: Nephrolithiasis History of Present Illness This is a 54-year-old male with an unremarkable past medical history. Patient says that he was in his usual state of health feeling well until last evening he woke up with sudden onset of right flank pain. He said the pain does radiate somewhat to his groin/right abdomen. He denies any fevers but did have an i ntermittent chills. He also has been having persistent nausea vomiting. He notes he has never had a kidney stone in the past. He says his only past abdominal surgery is an appendectomy. He denies any dysuria or hematuria. He has never had a cystoscopy in the past. In the emergency department the patient did have labs and imaging which were independently reviewed. Labs consisted of a CBC where his white blood cell count, hemoglobin, hematocrit, and platelet count were all within normal range. Chemistry profile revealed sodium, potassium, and creatinine were all within normal range. BUN was slightly elevated at 23. A CT scan of the abdomen showed a 3.5 cm kidney stone causing moderate right hydronephrosis. Multiple additional stones were noted on the right kidney which were nonobstructive. Urinalysis was obtained but is pending at the time of this dictation. A Covid test is noted to be negative. At the time of my interview the patient was having some nausea vomiting. His p ain control was improved however. He was in no distress. Allergies Allergy/AdvReac Type Severity Reaction Status Date / Time amoxicillin Allergy Intermediate HIVES Verified 08/01/20 01:24 aspirin Allergy Intermediate HIVES Verified 08/01/20 01:24 Fish Containing Products Allergy Intermediate HIVES Verified 08/01/20 01:24 POLLEN Allergy Intermediate ITCHY Uncoded 08/01/20 01:26 EYES, SNEEZING, CONGESTION, HX ASTHMA Home Medications Medication Instructions Recorded Confirmed Type fluticasone propionate 50 1 spray INTRANASAL DAILY gm 11/22/18 08/01/20 History mcg/actuation nasal spray,suspension multivitamin 1 tab PO DAILY 11/22/18 08/01/20 History fexofenadine-pseudoephedrine ER 1 tab PO QAM #90 tab 08/27/19 08/01/20 Rx 180 mg-240 mg tablet,ext.release 24 hr albuterol sulfate 90 mcg/actuation 2 puffs INHALATION Q4H PRN #3 09/18/19 08/01/20 Rx aerosol inhaler inhaler fluticasone 250 mcg-salmeterol 50 1 inh INHALATION BID #3 ea 07/02/20 08/01/20 Rx mcg/dose blistr powdr for inhalation Patient History Medical History H/O epistaxis Surgical History History of appendectomy History of cataract surgery History of colonoscopy Family History Unknown Allergic rhinitis Diabetes Father Cardiac disorder Hypercholesterolemia Mother Hypertension Hypercholesterolemia Social History Smoking Status: Never smoker Hx Alcohol Use: No Preferred Language: Kittitian marital status: current occupational status: employed Feels Safe at Home: Yes Review of Systems Constitutional: + chills; no fever Eyes: no diplopia Ear, Nose, Mouth, Throat: no ear pain Respiratory: no cough and no dyspnea Cardiovascular: no chest pain Gastrointestinal: + nausea and + vomiting; no abdominal pain Genitourinary: + flank pain (Right sided); no dysuria Musculoskeletal: + back pain (Right sided flank pain) Integumentary: no rash Neurologic: + localized weakness Physical Exam Constitutional: well developed and well nourished; no acute distress Eyes: no conjunctival abnormality Wears glasses ENMT: Ears: no hearing impairment Neck: trachea midline Respiratory: normal respiratory effort, lungs clear to auscultation Cardiovascular: Rate/Rhythm: regular rate and regular rhythm Gastrointestinal (Abdomen): Abdomen is soft and nondistended. Bowel sounds are present. There is no pain with palpation. There is no rebound tenderness or guarding. Musculoskeletal: No calf tenderness Skin: no rashes, warm and dry Neurologic: moves all extremities Psychiatric: A+Ox3, euthymic affect Genitourinary: no CVA tenderness Results & Data ([facility]) Vital Signs (Past 12 Hours) Vital Signs Temp Pulse Resp BP Pulse Ox 08/01/20 05:00 60 23 161/93 H 98 08/01/20 04:44 56 L 19 179/98 H 96 08/01/20 04:43 68 99 08/01/20 04:01 66 12 99 08/01/20 04:00 66 14 163/90 H 98 08/01/20 03:31 47 L 14 100 08/01/20 03:30 48 L 18 156/93 H 100 08/01/20 03:13 55 L 22 98 08/01/20 03:12 72 19 162/87 H 98 08/01/20 03:06 68 17 08/01/20 02:31 63 12 137/79 99 08/01/20 02:30 63 17 99 08/01/20 02:00 72 20 141/78 H 100 08/01/20 01:37 61 12 144/103 H 100 08/01/20 01:14 61 17 156/92 H 100 08/01/20 01:05 20 08/01/20 01:00 35.9 C L 86 22 135/84 100 PG Care Time/CCT Total # of Minutes Spent Total Time Spent with Patient: Total time spent is greater than 50% in coordination of care (as documented) at patient's floor/unit and/or counseling patient: Coding Level of Care Code 84488 Inpt Consult Level 5 Diagnoses Ureterolithiasis N20.1
[2020-08-01 05:50] LABS: Sperm Urine Present (None Prsent)
[2020-08-01] MEDS: SODIUM CHLORIDE 0.9% 1000ML 1,000 ML IV SCH ×3 (06:17→23:19)
[2020-08-01] MEDS: cefTRIAXone SODIUM 1,000 MG in DEXTROSE 5% 50 ML IV SCH (06:18)
--- NOTE | 2020-08-01 06:49 | CT Scan Report ---
CT OF THE ABDOMEN AND PELVIS WITHOUT CONTRAST CLINICAL HISTORY: Right flank pain. COMPARISON STUDY: No previous studies for comparison. TECHNIQUE: Axial images of the abdomen and pelvis were obtained without IV contrast. Images were revi ewed in the axial, sagittal, and coronal planes. Automated exposure control was utilized for the felipa dy. A dose lowering technique was utilized adhering to the principles of ALARA. FINDINGS: Lung bases are unremarkable. A 4 mm proximal right ureteral calculus located at the L5 leve l results in mild right hydronephrosis with moderate right perinephric fluid. Multiple small bilatera l renal calculi measure up to 3 mm. There are no left ureteral calculi. Evaluation of the remainder o f the abdomen and pelvis is suboptimal as unenhanced examination. A small fluid-filled hiatal hernia is present. Unenhanced images of the liver, spleen, adrenal glands and pancreas are unremarkable. The re is no biliary or pancreatic ductal dilatation. There is no evidence for a bowel obstruction. Prost ate is mildly enlarged. No suspicious osseous lesions are present. IMPRESSION: 1. 4 mm proximal right ureteral calculus results in mild right hydronephrosis with moderate perinephr ic fluid. 2. Bilateral nephrolithiasis. ACT 112: Negative or not required by law. Electronically signed by: Asael Yi M.D. 08/01/2020 6:48 AM
[2020-08-01] MEDS: FLUTICASONE PROPIONATE NA SPR 16 GM BTL SCH (07:50)
[2020-08-01] MEDS: HYDROmorphone INJ 0.5 MG/0.5 ML SYR IV PRN ×3 (07:50→23:14)
[2020-08-01] MEDS: FLUTICASONE/VILANTEROL 100/25MCG 14 PUFFS/INHALER INH SCH (07:51)
[2020-08-01] MEDS: TAMSULOSIN HCL 0.4 MG CAP PO SCH (07:51)
--- NOTE | 2020-08-01 09:48 | XRay Report ---
KUB HISTORY: Right ureteral calculus COMPARISON: Abdomen and pelvis CT 08/01/2020. FINDINGS: The bowel gas pattern is unremarkable. There are no dilated loops of small bowel to suggest an obstruction. The patient's known punctate bilateral renal calculi and mid right ureteral stone a re not clearly identified and are likely obscured by overlying bowel. Stable calcification within the left deep pelvis consistent with a phlebolith. No pneumoperitoneum or pneumatosis. IMPRESSION: The patient's known punctate bilateral renal calculi and mid right ureteral stone are not clearly krystle ntified and are likely obscured by overlying bowel. ACT 112: Negative or not required by law. Electronically signed by: Jonathan Zamora M.D. 08/01/2020 9:47 AM
--- NOTE | 2020-08-01 11:24 | Urology Progress Note ---
Date of Service August 01, 2020 Assessment & Plan (1) Ureterolithiasis: (2) Acute flank pain: 54yo M admitted with intractable right flank pain with associated nausea vomiting secondary to a 4mm proximal right ureteral stone with mild right-sided hydronephrosis. - Plan of care reviewed with Dr. Madrigal - Remains afebrile - No stone passage noted - Discussed options for acute stone management with cystoscopy, stent placement, possible stone treatment - Discussed outpatient options for conservative measures with max expulsion medical therapy - Discussed possible outpatient ESWL, KUB ordered to assess for stone visualization - Risks/benefits of all procedures discussed - Patient is considering options, will make additional recommendations pending KUB findings - Keep NPO - Strain all urine - Will reassess this afternoon - Pt reassessed this afternoon - Reviewed KUB findings in detail with patient - KUB today did not clearly identify the mid right ureteral stone or the known punctate bilateral renal calculi, likely obscured by overlying bowel - Patient prefers to continue with trial of passage today - No acute intervention planned - Ok to have diet back today - Will make NPO at midnight - KUB in the AM to reassess for stone - Continue supportive care, pain control, and flomax - Strain all urine - Will continue to follow - Please consult our service urgently if patient develops fever >101F, intractable pain or nausea, as this will necessitate urgent surgical interve ntion Admission and Anticipated Discharge Date Admission Date: August 01, 2020 Subjective Pt examined at bedside this AM with Dr. Madrigal. Still with right flank pain, controlled with IV pain medication. Patient c/o nausea, especially with movement. No vomiting. No fevers or chills. Denies hematuria/dysuria. Straining all urine, no stone passage noted. Remains NPO. Review of Systems Constitutional: as per Subjective / HPI Gastrointestinal: as per Subjective / HPI Genitourinary: + as per Subjective / HPI Physical Exam Constitutional: well developed and well nourished; no acute distress Respiratory: no respiratory distress and no labored breathing Gastrointestinal (Abdomen): Percussion/Palpation: abdomen soft; abdomen nont dion and no guarding Neurologic: moves all extremities and awake Psychiatric: A+Ox3, euthymic affect Results & Data ([facility]) Vital Signs (Past 12 Hours) Vital Signs Temp Pulse Pulse Resp BP BP Pulse Ox 08/01/20 08:06 36.4 C L 64 16 152/82 H 93 08/01/20 05:42 64 14 149/84 H 97 08/01/20 05:00 60 23 161/93 H 98 08/01/20 04:44 56 L 19 179/98 H 96 08/01/20 04:43 68 99 08/01/20 04:01 66 12 99 08/01/20 04:00 66 14 163/90 H 98 08/01/20 03:31 47 L 14 100 08/01/20 03:30 48 L 18 156/93 H 100 08/01/20 03:13 55 L 22 98 08/01/20 03:12 72 19 162/87 H 98 08/01/20 03:06 68 17 08/01/20 02:31 63 12 137/79 99 08/01/20 02:30 63 17 99 08/01/20 02:00 72 20 141/78 H 100 08/01/20 01:37 61 12 144/103 H 100 08/01/20 01:14 61 17 156/92 H 100 08/01/20 01:05 20 08/01/20 01:00 35.9 C L 86 22 135/84 100 PG Care Time/CCT Total # of Minutes Spent Total Time Spent with Patient: Total time spent is greater than 50% in coordination of care (as documented) at patient's floor/unit and/or counseling patient: Coding Level of Care Code None Diagnoses Ureterolithiasis N20.1 Acute flank pain R10.9
[2020-08-01] MEDS: ACETAMINOPHEN 325 MG TAB PO PRN ×3 (12:57→23:13)
--- NOTE | 2020-08-01 21:32 | Billing Data ---
Date of Service August 01, 2020 Coding Level of Care Code 17135 Initial Inpt Care Lvl 2
--- NOTE | 2020-08-01 23:54 | Hospitalist Progress Note ---
Date of Service August 01, 2020 Assessment & Plan (1) Acute flank pain: 54yo M admitted with intractable right flank pain with associated nausea vomiting secondary to a 4mm proximal right ureteral stone with mild right-sided hydronephrosis. NPO at midnight Continue conservative management Continue IV fluids and IV ceftriaxone Continue tamsulosin 0.4 mg daily Admission and Anticipated Discharge Date Admission Date: August 01, 2020 Subjective Patient having minimal pain at the present time. No fevers or chills. No stone passage. Review of Systems Review of Systems: All systems reviewed & are unremarkable except as noted in HPI & below Physical Exam Constitutional: WD/WN, vitals as above Respiratory: normal respiratory effort, lungs clear to auscultation Cardiovascular: RRR, no murmur, no edema Gastrointestinal (Abdomen): normal bowel sounds, soft, nontender, no hepatosplenomegaly Genitourinary: + CVA tenderness (Mild right-sided) Results & Data Results & Data ([facility]) Vital Signs (Past 12 Hours) Vital Signs Temp Pulse Resp BP Pulse Ox 08/01/20 23:38 36.9 C 71 18 140/68 95 08/01/20 14:46 36.6 C 66 18 149/78 H 98 Diagnostic Findings KUB IMPRESSION: The patient's known punctate bilateral renal calculi and mid right ureteral stone are not clearly identified and are likely obscured by overlying bowel. PG Care Time/CCT Total # of Minutes Spent Total Time Spent with Patient: Total time spent is greater than 50% in coordination of care (as documented) at patient's floor/unit and/or counseling patient: Coding Level of Care Code None Diagnoses Acute flank pain R10.9
--- NOTE | 2020-08-02 00:06 | Electrocardiogram Report ---
Test Reason : Blood Pressure : / mmHG Vent. Rate : 051 BPM Atrial Rate : 051 BPM P-R Int : 168 ms QRS Dur : 090 ms QT Int : 456 ms P-R-T Axes : 063 082 061 degrees QTc Int : 420 ms Sinus bradycardia Possible Left atrial enlargement Left ventricular hypertrophy Abnormal ECG No previous ECGs available Confirmed by Kd Aguirre ([id number]) on 08/02/2020 12:05:51 AM Referred By: REFERRED SELF Confirmed By:Kd Aguirre
[2020-08-02] MEDS: cefTRIAXone SODIUM 1,000 MG in DEXTROSE 5% 50 ML IV SCH (05:47)
[2020-08-02] MEDS: HYDROmorphone INJ 0.5 MG/0.5 ML SYR IV PRN (05:51)
[2020-08-02 06:32] LABS: Basophils # (auto) 0.02 K/uL (0-0.2); Basophils % (auto) 0.2 %; Eosinophils % (auto) 1.1 %; Hematocrit (blood only) 37.4 % (42-52); Hemoglobin 12.7 g/dL (14.0-18.0); Immature Granulocytes # (auto) 0.02 K/uL (0.00-0.02); Immature Granulocytes % (auto) 0.2 %; Lymphocytes % (auto) 14.9 %; Mean Corpuscular Hemoglobin 31.4 pg (25-34); Mean Corpuscular Volume 92.6 fL (80-100); Mean Platelet Volume 9.7 fL (7.4-10.4); Monocytes # (auto) 1.06 K/uL (0.11-0.59); Monocytes % (auto) 11.3 %; Neutrophils # (auto) 6.81 K/uL (1.4-6.5); Neutrophils % (auto) 72.3 %; Platelet Count 218 K/uL (130-400); RDW Coefficient of Variation 13.1 % (11.5-14.5); RDW Standard Deviation 44.2 fL (36.4-46.3); Red Blood Count 4.04 M/uL (4.7-6.1); White Blood Count 9.41 K/uL (4.8-10.8)
[2020-08-02 07:00] LABS: BUN Creatinine Ratio 13.8 (10-20); Calcium 7.6 mg/dl (8.5-10.1); Creatinine Clr Calc Pharmacy 47.2 ml/min; Est GFR (African American) 51.1; Est GFR (Non-African American) 44.1; Potassium 3.7 mmol/L (3.5-5.1); Uric Acid 6.9 mg/dl (2.6-7.2)
[2020-08-02] MEDS: SODIUM CHLORIDE 0.9% 1000ML 1,000 ML IV SCH (07:51)
--- NOTE | 2020-08-02 09:15 | XRay Report ---
KUB HISTORY: Follow up study in a patient with renal calculi ureteral calculus COMPARISON: KUB and CT abdomen and pelvis 08/01/2020 FINDINGS: Nonobstructive bowel gas pattern with moderate fecal retention. Obscuration of the renal sh adows by bowel gas. The known punctate bilateral nephrolithiasis are not identified. There is a new 4 mm calcification of the right hemipelvis. Unchanged 2 mm left pelvic phlebolith. No pneumoperitoneu m or pneumatosis. No fracture. IMPRESSION: 1. New 4 mm calcification of the right hemipelvis is suggestive of a calculus within the distal right ureter or ureterovesicular junction. 2. The patient's known punctate bilateral nephrolithiasis are obscured by bowel gas. ACT 112: Negative or not required by law. The above report was generated using voice recognition software. It may contain grammatical, syntax o r spelling errors. Electronically signed by: Matt Walker M.D. 08/02/2020 9:13 AM
[2020-08-02] MEDS: D5W AND 1/2NSS + 20MEQ KCL 20 MEQ/1,000 ML BAG IV SCH ×3 (09:36→23:27)
[2020-08-02] MEDS: FLUTICASONE/VILANTEROL 100/25MCG 14 PUFFS/INHALER INH SCH (09:37)
[2020-08-02] MEDS: TAMSULOSIN HCL 0.4 MG CAP PO SCH (09:37)
[2020-08-02] MEDS: FLUTICASONE PROPIONATE NA SPR 16 GM BTL SCH (09:38)
[2020-08-02] MEDS: ACETAMINOPHEN 325 MG TAB PO PRN (09:40)
--- NOTE | 2020-08-02 11:05 | Urology Progress Note ---
Date of Service August 02, 2020 Assessment & Plan (1) Ureterolithiasis: (2) Acute flank pain: 54yo M admitted with intractable right flank pain with associated nausea vomiting secondary to a 4mm proximal right ureteral stone with mild right-sided hydronephrosis. - No stone passage noted Patient wants to move forward with surgery. We will attempt a right ureterosopy, laser lithotripsy, and stent placement. He understands that I may not be able to remove the stone today and would need to just place a stent. Risks and benefits discussed. To OR today. Admission and Anticipated Discharge Date Admission Date: August 01, 2020 Subjective Today patient is having minimal pain as long as he is using pain meds. He has decided that he was surgical intervention. Patient has been NPO. No fevers overnight. No CP or SOB. Neg Covid test. Patient having minimal pain at the present time. No fevers or chills. No stone passage. Review of Systems Review of Systems: All systems reviewed & are unremarkable except as noted in HPI & below Physical Exam Physical Exam: NAD nonlabored breathing regular rate soft NT Ext Without edema Results & Data ([facility]) Vital Signs (Past 12 Hours) Vital Signs Temp Pulse Resp BP Pulse Ox 08/02/20 07:22 36.5 C 79 16 130/59 L 95 08/01/20 23:38 36.9 C 71 18 140/68 95 PG Care Time/CCT Total # of Minutes Spent Total Time Spent with Patient: Total time spent is greater than 50% in coordination of care (as documented) at patient's floor/unit and/or counseling patient: Coding [place] [address] Subseq Hosp Care Lvl 2 Patient Type Established History Expanded Problem Focused Exam Expanded Problem Focused Diagnoses Ureterolithiasis N20.1 Acute flank pain R10.9 Time Spent (min) 25
--- NOTE | 2020-08-02 11:15 | Anesthesiology Consultation ---
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 Surgery Operation Date: 08/02/20 11:30 Proposed Procedures p Cystoscopy, Possible Right Ureteroscope, Laser Lithotripsy, Left Stent Insertion - Mica Tomas MD Height/Weight Height: 5 ft 8 in Weight: 74 kg Allergies Allergy/AdvReac Type Severity Reaction Status Date / Time amoxicillin Allergy Intermediate HIVES Verified 08/01/20 01:24 aspirin Allergy Intermediate HIVES Verified 08/01/20 01:24 Fish Containing Products Allergy Intermediate HIVES Verified 08/01/20 01:24 POLLEN Allergy Intermediate ITCHY Uncoded 08/01/20 01:26 EYES, SNEEZING, CONGESTION, HX ASTHMA Medications Home Medications Medication Instructions Recorded Confirmed Last Taken fluticasone propionate 50 1 spray INTRANASAL DAILY gm 11/22/18 08/01/20 07/31/20 mcg/actuation nasal spray,suspension multivitamin 1 tab PO DAILY 11/22/18 08/01/20 07/31/20 fexofenadine-pseudoephedrine ER 1 tab PO QAM #90 tab 08/27/19 08/01/20 07/31/20 180 mg-240 mg tablet,ext.release 24 hr albuterol sulfate 90 mcg/actuation 2 puffs INHALATION Q4H PRN #3 09/18/19 08/01/20 Unknown aerosol inhaler inhaler fluticasone 250 mcg-salmeterol 50 1 inh INHALATION BID #3 ea 07/02/20 08/01/20 07/31/20 mcg/dose blistr powdr for inhalation Active Medications Generic Name Dose Route Start Last Admin Trade Name Freq PRN Reason Stop Dose Admin Acetaminophen 650 mg 08/01/20 05:41 08/02/20 09:40 Acetaminophen 325 Mg Tab PO 08/31/20 05:40 650 mg Q4H PRN Administration pain/fever Fluticasone Propionate 1 sprays 08/01/20 09:00 08/02/20 09:38 Fluticasone Propionate Na Spr 16 Gm Btl NA 08/31/20 08:59 1 sprays DAILY SUNDAR Administration Fluticasone/Vilanterol 1 puffs 08/01/20 09:00 08/02/20 09:37 Fluticasone/Vilanterol 100/25mcg 14 Puffs/Inhaler INH 08/31/20 08:59 1 puffs DAILY SUNDAR Administration Hydromorphone HCl 0.5 mg 08/01/20 05:41 08/02/20 05:51 Hydromorphone Inj 0.5 Mg/0.5 Ml Syr IV 08/15/20 05:40 0.5 mg Q3H PRN Administration Pain (6,7,8,9,10) Ceftriaxone Sodium 1,000 mg/ 50 mls @ 100 mls/hr 08/01/20 06:00 08/02/20 06:29 Dextrose IV 08/11/20 05:59 Infused Q24H SUNDAR Infusion Protocol Potassium Chloride/Dextrose/Sod Cl 20 meq in 1,000 mls @ 175 mls/hr 08/02/20 09:30 08/02/20 09:36 D5w And 1/2nss + 20meq Kcl IV 09/01/20 09:29 175 mls/hr .Q5H43M SUNDAR Administration Tamsulosin HCl 0.4 mg 08/01/20 09:00 08/02/20 09:37 Tamsulosin Hcl 0.4 Mg Cap PO 08/31/20 08:59 0.4 mg QAM SUNDAR Administration Past Medical History Medical History H/O epistaxis Past Family History Family History Unknown Allergic rhinitis Diabetes Father Cardiac disorder Hypercholesterolemia Mother Hypertension Hypercholesterolemia Past Surgical History Surgical History History of appendectomy History of cataract surgery History of colonoscopy Social History Smoking Status: Never smoker Hx Alcohol Use: Yes alcohol intake frequency: holidays/special occasions only Hx Substance Use: No Physical Exam Vital Signs Last Vital Signs Temp 97.7 F 08/02/20 07:22 Pulse 79 08/02/20 07:22 Resp 16 08/02/20 07:22 BP 130/59 L 08/02/20 07:22 Pulse Ox 95 08/02/20 07:22 Testing Laboratory Results 08/02/20 06:16 08/02/20 06:16 Urine Color Yellow 08/01/20 05:15 Urine Appearance Clear (Clear) 08/01/20 05:15 Urine pH 7.5 (4.5-7.5) 08/01/20 05:15 Ur Specific [place] 1.017 (1.000-1.030) 08/01/20 05:15 Urine Protein Negative (Negative) 08/01/20 05:15 Urine Glucose (UA) Negative (Negative) 08/01/20 05:15 Urine Ketones 1+ (Negative) H 08/01/20 05:15 Urine Nitrite Negative (Negative) 08/01/20 05:15 Ur Leukocyte Esterase Negative (Negative) 08/01/20 05:15 Urine WBC (Auto) 1-5 /hpf (0-5) 08/01/20 05:15 Urine RBC (Auto) 0-4 /hpf (0-4) 08/01/20 05:15 U Hyaline Cast (Auto) 0 /lpf (0-5) 08/01/20 05:15 U Epithel Cells (Auto) 5-10 /lpf (0-5) H 08/01/20 05:15 Urine Bacteria (Auto) Negative (Negative) 08/01/20 05:15 Electrocardiogram Date: 08/01/20 Sinus bradycardia, rate 51 bpm Possible Left atrial enlargement Left ventricular hypertrophy Abnormal ECG No previous ECGs available Confirmed by Kd Aguirre ([id number]) on 08/02/2020 12:05:51 AM
[2020-08-02] MEDS ORDERED: PROPOFOL IV EMULSION 10 MG/ML 20 ML VIAL IV ONE (11:18)
[2020-08-02] MEDS ORDERED: LIDOCAINE HCL 2% 2 ML VIAL/AMP(20MG/ML) INFIL ONE (11:18)
[2020-08-02] MEDS ORDERED: ONDANSETRON INJ 2 MG/ML 2 ML VIAL ONE (11:18)
[2020-08-02] MEDS ORDERED: MIDAZOLAM HCL 1 MG/ML 2ML VIAL ONE (11:18)
[2020-08-02] MEDS ORDERED: fentaNYL citrate 100 MCG/2 ML VIAL ONE (11:18)
[2020-08-02] MEDS ORDERED: ePHEDrine sulfate 50 MG/ML AMP IV PRN (11:49)
[2020-08-02] MEDS ORDERED: fentaNYL citrate 100 MCG/2 ML VIAL IV PRN (11:49)
[2020-08-02] MEDS ORDERED: ONDANSETRON INJ 2 MG/ML 2 ML VIAL IV PRN (11:49)
[2020-08-02] MEDS ORDERED: ATROPINE SULFATE 0.1 MG/ML 10ML SYR IV PRN (11:49)
[2020-08-02] MEDS ORDERED: ePHEDrine sulfate 50 MG/ML SYR ONE (12:35)
--- NOTE | 2020-08-02 12:45 | Post Operative Brief Note ---
PG Immediate Post Op with CF Date of Surgery August 02, 2020 Pre & Post Diagnosis Operation Date: 08/02/20 11:30 <No data on this case meets the specified criteria> Preop Dx: Right ureteral stone Post Op Dx: same I identified the patient and participated in the time-out.: Yes Procedure Cystoscopy, right ureteral stent placement Operation Date: 08/02/20 11:30 <No data on this case meets the specified criteria> Surgeon Mica Tomas MD Datastage Architect none Estimated Blood Loss 0 Findings Consistent with Post-Op Diagnosis
--- NOTE | 2020-08-02 12:49 | Operative Report ---
PG Post Operative Report Pre & Post Diagnosis Operation Date: 08/02/20 11:30 <No data on this case meets the specified criteria> Preop Dx: right ureteral stone Post Oop DX: same I identified the patient and participated in the time-out.: Yes Procedure Cystoscopy, right ureteral stent Operation Date: 08/02/20 11:30 <No data on this case meets the specified criteria> Surgeon Mica Tomas MD Jigman none Estimated Blood Loss 0 Findings Consistent with Post-Op Diagnosis Specimens none Description of Procedure The patient was brought to the OR after discussion of the risks and benefits of the procedure. He underwent anesthesia and was placed in a lithotomy position. He was prepped and draped. A 21Fr rigid cystscope was used to examine the urethra and bladder which was normal other than a small clot within the bladder. A wire was passed to the level of the kidney without issues. When I bypassed the stone copious amounts of dark cloudy drainage effluxed from the orifice. Over the wire, I then passed a 6F x 26cm stent. I secured a coil within the kidney and bladder. The bladder was drained. He was transferred to recovery in stable condition. I attest to the content of the Intraoperative Record and any orders documented therein. Any exceptions are noted below.
--- NOTE | 2020-08-02 12:59 | Anesthesiology Progress Note ---
Date of Service August 02, 2020 Anesthesia Post Procedure Vital Signs Vital Signs: Temp Pulse Pulse Resp BP BP Pulse Ox 08/02/20 12:53 97.9 F 74 16 112/71 98 08/02/20 07:22 97.7 F 79 16 130/59 L 95 08/01/20 23:38 98.4 F 71 18 140/68 95 08/01/20 14:46 97.9 F 66 18 149/78 H 98 Pain Intensity Right Flank: Pain Intensity: 1 Bilateral Lower Back: Pain Intensity: 4 Transfer of Care Handoff Completed per policy Notes Mental Status: alert / awake / arousable and participated in evaluation Patient Amnestic to Procedure: Yes Nausea / Vomiting: adequately controlled Pain: adequately controlled Airway Patency, RR, SpO2: stable & adequate BP & HR: stable & adequate Hydration State: stable & adequate Anesthetic Complications: no major complications apparent and Pt Satisfied with anesthetic care
[2020-08-02] MEDS ORDERED: DEXAMETHASONE SOD INJ 4 MG/ML VIAL ONE (13:03)
--- NOTE | 2020-08-02 13:41 | Fluoroscopy Report ---
FL KUB HISTORY: 54 years-old Male RIGHT SIDED CYSTO AND STENT PLACEMENT follow-up study in a patient with n ephrolithiasis and ureteral calculus COMPARISON: CT abdomen and pelvis 08/01/2020 TECHNIQUE: 3 spot fluoroscopic images of the abdomen were obtained utilizing 5.9 seconds fluoroscopy time FINDINGS: A right-sided ureteral stent has been placed which appears to be in satisfactory positioning. The pre viously noted right nephrolithiasis and ureteral calculus are not identified. IMPRESSION: Fluoroscopic assistance as above. ACT 112: Negative or not required by law. The above report was generated using voice recognition software. It may contain grammatical, syntax o r spelling errors. Electronically signed by: Matt Walker M.D. 08/02/2020 1:40 PM
[2020-08-02] MEDS: OXYBUTYNIN CHLORIDE 5 MG TAB PO SCH ×2 (14:55→20:34)
--- NOTE | 2020-08-02 22:54 | Hospitalist Progress Note ---
Date of Service August 02, 2020 Assessment & Plan (1) Acute flank pain: 54yo M admitted with intractable right flank pain with associated nausea vomiting secondary to a 4mm proximal right ureteral stone with mild right-sided hydronephrosis. s/p ureteral stent placement 08/02, copious dark cloudy drainage from effluxed Increase IV fluids to 175 ml/hr with D5W 0.5NSS with KCl and IV ceftriaxone (given fluid description) Continue tamsulosin 0.4 mg daily (2) Ureterolithiasis: as above Continued inpatient stay due to rising creatinine and fluid pus-like behind stent. Admission and Anticipated Discharge Date Admission Date: August 01, 2020 Subjective Patient seen post operatively. Doing well. No concerns at this time. Pain mostly resolved after stent placed. Creatinine elevated this morning therefore IV fluid rate increased and he is passing a lot of urine. Review of Systems Review of Systems: All systems reviewed & are unremarkable except as noted in HPI & below Physical Exam Constitutional: WD/WN, vitals as above Respiratory: normal respiratory effort Gastrointestinal (Abdomen): normal bowel sounds, soft, nontender, no hepatosplenomegaly Results & Data Results & Data ([facility]) Vital Signs (Past 12 Hours) Vital Signs Temp Pulse Pulse Resp BP BP Pulse Ox 08/02/20 22:32 37.2 C 80 18 114/62 95 08/02/20 19:14 37.1 C 83 18 144/77 H 96 08/02/20 15:38 36.8 C 73 16 136/74 96 08/02/20 14:40 36.6 C 68 16 131/71 98 08/02/20 14:08 36.6 C 69 16 130/70 95 08/02/20 13:40 36.5 C 74 18 146/67 H 95 08/02/20 13:20 36.5 C 82 15 120/70 99 08/02/20 13:10 81 16 111/70 99 08/02/20 13:00 79 15 118/65 99 08/02/20 12:53 36.6 C 74 16 112/71 98 PG Care Time/CCT Total # of Minutes Spent Total Time Spent with Patient: Total time spent is greater than 50% in coordination of care (as documented) at patient's floor/unit and/or counseling patient: Coding Level of Care Code 34266 Subseq Hosp Care Lvl 2 Diagnoses Acute flank pain R10.9 Ureterolithiasis N20.1
[2020-08-02] MEDS ORDERED: oxyCODONE HCL IR 5 MG TAB (IMMEDIATE RELEASE) PO PRN (22:59)
[2020-08-03] MEDS: D5W AND 1/2NSS + 20MEQ KCL 20 MEQ/1,000 ML BAG IV SCH (05:03)
[2020-08-03] MEDS: cefTRIAXone SODIUM 1,000 MG in DEXTROSE 5% 50 ML IV SCH (05:03)
[2020-08-03 06:39] LABS: BUN Creatinine Ratio 15.2 (10-20); Calcium 8.5 mg/dl (8.5-10.1); Creatinine Clr Calc Pharmacy 61.2 ml/min; Est GFR (African American) 69.9; Est GFR (Non-African American) 60.3; Potassium 3.8 mmol/L (3.5-5.1)
--- NOTE | 2020-08-03 07:56 | Discharge Summary ---
Date of Service August 03, 2020 Admission HPI Per Admitting Provider Polo Lopez is here for sudden onset flank pain. He woke up at 12:02 with pain that was severe but it waxed and waned. It was in his right flank but also radiated down to his groin. He developed nausea but has not vomited. He has never had anything like this previously. He did not start any new medications recently. His pain has improved with pain medication that he received in the ER. He has a history of gout but most recent uric acid level was normal. He has not had dysuria, hematuria or urgency but does complain of some chronic urinary frequency getting up 2-3 times a night. Hx. of Asthma, well controlled. Admission Exam Per Admitting Provider Constitutional: WD/WN, vitals as above Eyes: PERRL, conjunctivae normal, anicteric sclerae ENMT: external ear and nose normal, oropharynx normal Neck: normal visual inspection Respiratory: normal respiratory effort, lungs clear to auscultation Cardiovascular: RRR, no murmur, no edema Gastrointestinal (Abdomen): Inspection/Auscultation: abdomen normal to inspection Percussion/Palpation: abdomen soft; abdomen nontender Musculoskeletal: No CVA tenderness, no spinous process tenderness Neurologic: no focal motor deficits Principal Diagnosis Right ureterolithiasis Right hydronephrosis Discharge Exam Constitutional WD/WN, vitals as above Respiratory normal respiratory effort, lungs clear to auscultation normal respiratory effort Cardiovascular RRR, no murmur, no edema Gastrointestinal (Abdomen) normal bowel sounds, soft, nontender, no hepatosplenomegaly Genitourinary + CVA tenderness (Mild right-sided) Discharge Data Allergies Allergy/AdvReac Type Severity Reaction Status Date / Time amoxicillin Allergy Intermediate HIVES Verified 08/01/20 01:24 aspirin Allergy Intermediate HIVES Verified 08/01/20 01:24 Fish Containing Products Allergy Intermediate HIVES Verified 08/01/20 01:24 fish derived Allergy Verified 08/02/20 16:52 fish oil Allergy Verified 08/02/20 16:52 POLLEN Allergy Intermediate ITCHY Uncoded 08/01/20 01:26 EYES, SNEEZING, CONGESTION, HX ASTHMA Consultations 08/01/20 04:33 ED Decision to Admit Stat 08/01/20 05:41 Consult Urology Routine Procedures Performed Operation Date: 08/02/20 11:30 Actual Procedures p Cystoscopy and Right Ureteral Stent Insertion(Right) - Mica Tomas MD Ordered Studies 08/01/20 01:20 CT abd pelvis wo con Urgent FINDINGS: Lung bases are unremarkable. A 4 mm proximal right ureteral calculus located at the L5 level results in mild right hydronephrosis with moderate right perinephric fluid. Multiple small bilateral renal calculi measure up to 3 mm. There are no left ureteral calculi. Evaluation of the remainder of the abdomen and pelvis is suboptimal as unenhanced examination. A small fluid-filled hiatal hernia is present. Unenhanced images of the liver, spleen, adrenal glands and pancreas are unremarkable. There is no biliary or pancreatic ductal dilatation. There is no evidence for a bowel obstruction. Prostate is mildly enlarged. No suspicious osseous lesions are present. IMPRESSION: 1. 4 mm proximal right ureteral calculus results in mild right hydronephrosis with moderate perinephric fluid. 2. Bilateral nephrolithiasis. 08/02/20 FL KUB Routine FL fluoroscopy <1hr Routine Hospital Course (1) Acute flank pain: Polo Lopez is a 54 year old male admitted at [facility] from August 01-2020 due to an obstructing ureterolithiasis. This was treated conservatively at first with IV fluids however subsequently required ureteral stent placement. This was performed on August 02, [address] Tomas. He was kept an extra night due to worsening renal function which improved with IV fluids on discharge. He was given IV ceftriaxone during his admission and switched to cefdinir on discharge for total 5 day course. Prescribed oxybutynin as needed for spasms related to the stent. He will follow up with urology for stent removal as an outpatient. (2) Ureterolithiasis: Total Time Total Time Spent Total Time Spent (In Minutes): 20 Total Time Includes: Examination of the Patient, Discharge Planning, Medication Reconciliation and Communication With Other Providers Discharge Plan Discharge Items Patient Disposition: Home - Self-Care Reason For Visit: HYDROURETERONEPHROSIS Discharge Diagnosis: Ureterolithiasis Activity: Resume your previous activity Non-emergency contact: Urologist Call non-emergency contact if: you have any medication questions and your symptoms worsen Follow-up/Referrals: Lucas Avina MD [Primary Care Provider] - (No routine follow up required) Mica Tomas MD [[place]] - (Follow up to be arranged by office) Diet: Regular Addtl Attending Provider Instructions: You were admitted at [facility] on August 01-2020 due to an obstructing kidney stone. This was treated conservatively at first with IV fluids however subsequently required ureteral stent placement. This was performed on August 02, [address] Tomas. He was kept an extra night due to worsening renal function which improved with IV fluids on discharge. Please follow-up with urology for ureteral stent removal. Please complete antibiotics for complicated urinary tract infection. Use oxybutynin as needed for spasms related to stent. Acetaminophen/ibuprofen for mild/moderate pain, oxycodone for more severe pain. Kind regards, Dr. Lei Estrada Pending Studies at Discharge: No Stand-Alone Forms: My [facility], Opioid Pain Management, Smoking Cessation Medications and DC Order Prescriptions: Continued Priya-D 24 Hour 180-240 mg tablet extended release 24 hr 1 tab PO QAM Qty: 90 RF: 3 albuterol sulfate 90 mcg/actuation HFA aerosol inhaler 2 puffs inhalation Q4H PRN (Reason: shortness of breath or wheezing) Qty: 3 RF: 3 fluticasone propionate 50 mcg/actuation spray,suspension 1 spray intranasal DAILY RF: 0 multivitamin [Daily Multi-Vitamin] tablet 1 tab PO DAILY RF: 0 fluticasone propion-salmeterol 250-50 mcg/dose blister with device 1 inh inhalation BID Qty: 3 RF: 3 No Action oxybutynin chloride 5 mg tablet 5 mg PO BID PRN (Reason: stent discomfort) Qty: 30 RF: 0 Discharge Orders: Discharge Order (Routine); Ordered 08/03/20 Ordered By: Lei Carroll/Other Patient Handouts: DVT Post Op Prevention Admission Data Admit Date/Time: 08/01/20 04:40 Attending Provider: Lei Estrada Admit Provider: Abe Sanchez Primary Care Provider: Lucas Avina Other Providers: French Naranjo ; Mica Tomas Other Interventions: Discharge Summary Assessment (RN) Last Done: 08/03/20 09:24 Coding Level of Care Code D/C Day Management <30 mins Diagnoses Acute flank pain R10.9 Ureterolithiasis N20.1
[2020-08-03] MEDS: FLUTICASONE/VILANTEROL 100/25MCG 14 PUFFS/INHALER INH SCH (08:57)
[2020-08-03] MEDS: FLUTICASONE PROPIONATE NA SPR 16 GM BTL SCH (08:57)
[2020-08-03] MEDS: OXYBUTYNIN CHLORIDE 5 MG TAB PO SCH (08:58)
[2020-08-03] MEDS: TAMSULOSIN HCL 0.4 MG CAP PO SCH (08:58)
[2020-08-03] MEDS ORDERED: oxyCODONE IR HOME PACK PO ONE (09:00)
== END 2020-08-03 10:08 | disposition home or self-care (01) | DRG 661 ==
LOC: ED 00:53 → SUATTDRO 04:40 → 3N 04:40